=== PATIENT | female | born 1960 | race Caucasian/White ===

== ENCOUNTER 2019-02-26 13:07 | Emergency (ER) | payer BC, MEDICAID ==
[~2019-02-26] VITALS: Ht 172.7 cm; Wt 74.8 kg
--- NOTE | 2019-02-26 13:18 | NUR ---
PT IS IN ROOM #2B. DR CHAO EVALUATED THE PT.
--- NOTE | 2019-02-26 14:18 | NUR ---
PT WAS D/C'd TO HOME AFTER DR CHAO EVALUATION. D/C INSTRUCTIONS GIVEN TO THE PT.
[2019-02-26 14:21] VITALS: BP 132/82
== END 2019-02-26 14:21 | disposition home or self-care (01) ==
LOC: ER 13:07
DX: S82.002A Unspecified fracture of left patella, initial encounter for closed fracture (principal); W01.0XXA Fall on same level from slipping, tripping and stumbling without subsequent striking against object, initial encounter; Y93.89 Activity, other specified; Y92.89 Other specified places as the place of occurrence of the external cause; Y99.8 Other external cause status
CPT/HCPCS: A4663

== ENCOUNTER 2022-10-13 15:13 | Emergency (ER) | payer OTHER, MEDICAID ==
[~2022-10-13] VITALS: Ht 165.1 cm; Wt 72.6 kg
--- NOTE | 2022-10-13 15:35 | NUR ---
AT BEDSIDE FOR EVALUATION.
[2022-10-13] MEDS ORDERED: LIDOCAINE 5% PATCH TD ONE ×2 (15:41→15:45)
[2022-10-13] MEDS ORDERED: KETOROLAC TROMETHAMINE 15 MG INJ ONE (15:41)
[2022-10-13] MEDS ORDERED: DIAZEPAM 5 MG TABLET ONE (15:42)
[2022-10-13] MEDS ORDERED: KETOROLAC TROMETHAMINE 15 MG INJ IM ONE (15:45)
[2022-10-13] MEDS ORDERED: DIAZEPAM 2 MG TABLET PO ONE (15:45)
[2022-10-13] MEDS ORDERED: DIAZ5TAB PO (16:34)
--- NOTE | 2022-10-13 16:56 | NUR ---
Patient discharged to home in stable condition. Written and verbal after care instructions given. Patient verbalizes understanding of instructions. Stressed follow up or return to ER for worsening s/s.
== END 2022-10-13 16:56 | disposition home or self-care (01) ==
LOC: ER 15:25
DX: S09.90XA Unspecified injury of head, initial encounter (principal); V43.91XA Unspecified car occupant injured in collision with sport utility vehicle in traffic accident, initial encounter; Y92.410 Unspecified street and highway as the place of occurrence of the external cause; R07.89 Other chest pain; M25.562 Pain in left knee; M54.9 Dorsalgia, unspecified
CPT/HCPCS: 99284; 71045; 73564; 96372; J1885; A4663